=== PATIENT | female | born 1960 | race African-American/Black ===

== ENCOUNTER 2017-01-03 11:02 | Emergency (ER) | payer BC, OTHER ==
[2017-01-03 11:08] VITALS: BMI 32.9
--- NOTE | 2017-01-03 12:24 | PDOC ---
Attending Attestation - Resident Resident Name: Kavitha Sheehan - HPI HPI: 01/03/17 15:17 Pt presents to the ED complaining of non productive cough, nausea and vomiting and generalized malaise. Complains of multiple episodes of vomiting, culminating in bilious vomiting this AM. two of her family members were recently sick with the flu. Also complaining of mild, generalized abdominal pain, worse with vomiting. - Physicial Exam PE: 01/03/17 15:41 Agree with resident exam. Lungs are clear, abdomen is non tender on my exam. 01/03/17 16:48 - Medical Decision Making 01/03/17 16:49 Pt presents to the ED complaining of generalized malaise, productive cough and vomiting. Labs are within normal limits except for mildly elevated WBC count. CXr checked to rule out PNA and is negative. Will give IV hydration and nausea control and likely discharge home if tolerates PO.
[2017-01-03] MEDS ORDERED: ACETAMINOPHEN 1000 MG/100 ML VIAL (NON FORMULARY) IVPB ONE (12:31)
[2017-01-03] MEDS ORDERED: ONDANSETRON 4 MG/2 ML VIAL IVPUSH ONE ×2 (12:31→16:59)
[2017-01-03] MEDS ORDERED: SODIUM CHLORIDE 1,000 ML IV STA ×2 (12:31→16:58)
--- NOTE | 2017-01-03 12:40 | PDOC ---
History of Present Illness - General Chief Complaint: Weakness Stated Complaint: FATIGUE, LOW BLOOD SUGAR Time Seen by Provider: 01/03/17 12:09 - History of Present Illness Initial Comments: 01/03/17 13:13 56yo woman with PMH of DM, HTN, HLD, and GERD who presents with continuous NBNB emesis since 3:30am, 3x episodes of non-bloody watery diarrhea, and generalized myalgia. Subjective fever and chills this morning. For the past few days she reports increased productive cough, but no sob. She also reports R ear pain starting a few days ago. Reports recent contact with several family members who have the "flu". She had a flu shot in August. No recent travel. PSx: R breast lumpectomy in R knee ACL repair x2 R rotator cuff repair x2 endometriosis s/p multiple laparoscopic hysterectomy 2010 hemorrhoidectomy Allergies: Morphine --> nausea Social: current everyday smoker, 1/2 ppd Past History - Past Medical History Allergies/Adverse Reactions: Allergies Allergy/AdvReac Type Severity Reaction Status Date / Time morphine Allergy Vomiting Verified 01/03/17 11:09 seasonal Allergy Uncoded 01/03/17 11:09 Home Medications: Ambulatory Orders Percocet 10-325 mg Tablet 2 tab PO BID 06/07/11 Albuterol Sulfate Inhaler - [Ventolin HFA Inhaler -] 1 - 2 inh PO Q4H #1 inhaler 01/03/17 Ondansetron [Zofran Odt -] 4 mg SL TID #21 od.tablet 01/03/17 Prednisone [Deltasone -] 40 mg PO DAILY #4 tablet 01/03/17 Anemia: No Asthma: No Cancer: No Cardiac Disorders: No CVA: No COPD: No CHF: No Dementia: No Diabetes: Yes GI Disorders: Yes (gerd) Disorders: No HTN: Yes Hypercholesterolemia: Yes Liver Disease: No Seizures: No Thyroid Disease: No - Surgical History Abdominal Surgery: Yes (umbilical hernia repair) Appendectomy: No Cardiac Surgery: No Cholecystectomy: No Lung Surgery: No Neurologic Surgery: No Orthopedic Surgery: Yes (right shoulder arthroscopy 2010) - Suicide/Smoking/Psychosocial Hx Smoking History: Current every day smoker Have you smoked in the past 12 months: Yes Number of Cigarettes Smoked Daily: 13 If you are a former smoker, when did you quit?: 03/04/11 Information on smoking cessation initiated: Yes 'Breaking Loose' booklet given: 01/03/17 Hx Alcohol Use: No Drug/Substance Use Hx: No Substance Use Type: None Hx Substance Use Treatment: No Review of Systems - Review of Systems Able to Perform ROS?: Yes Constitutional: Yes: Symptoms Reported HEENTM: Yes: Ear Pain (R) Respiratory: Yes: Productive cough Cardiac (ROS): No: Symptoms Reported, See HPI, Chest Pain, Edema, Irregular Heart Rate, Lightheadedness, Palpitations, Syncope, Chest Tightness, Other ABD/GI: Yes: Diarrhea, Nausea, Vomiting : No: Symptoms Reported, See HPI, Burning, Dysuria, Discharge, Frequency, Flank Pain, Hematuria, Incontinence, Pain, Urgency, Testicular Mass, Testicular Swelling, Lesions, Testicular Pain, Other Musculoskeletal: No: Symptoms Reported, See HPI, Back Pain, Gout, Joint Pain, Joint Swelling, Muscle Pain, Muscle Weakness, Neck Pain, Joint Stiffness, Other Integumentary: No: Symptoms Reported, See HPI, Bruising, Change in Color, Change in Hair/Nails, Dryness, Erythema, Flushing, Lesions, Lumps, Pallor, Pruritus, Rash, Sweating, Other Neurological: Yes: Headache Psychiatric: No: Anxiety, Depression, Frequent Crying, Stressors, Sleep Pattern Change, Emotional Problems, Mood Swings, Change in Appetite, Other Endocrine: No: Symptoms Reported, See HPI, Excessive Sweating, Flushing, Intolerance to Cold, Intolerance to Heat, Increased Hunger, Increased Thirst, Increased Urine, Unexplained Weight Gain, Unexplained Weight Loss, Change in Weight, Other Hematologic/Lymphatic: No: Symptoms Reported, See HPI, Anemia, Blood Clots, Easy Bleeding, Easy Bruising, Bleeding Diathesis, Lymph Node Abnormalities, Swollen Glands, Other *Physical Exam - Vital Signs Last Vital Signs Temp Pulse Resp BP Pulse Ox 99.2 F 116 H 19 96/80 97 01/03/17 11:05 01/03/17 11:05 01/03/17 11:05 01/03/17 11:05 01/03/17 11:05 - Physical Exam General Appearance: Yes: Nourished, Appropriately Dressed HEENT: positive: Normal ENT Inspection Neck: positive: Lymphadenopathy (R) Respiratory/Chest: positive: Lungs Clear, Normal Breath Sounds Cardiovascular: positive: Regular Rhythm, S1, S2, Tachycardia Gastrointestinal/Abdominal: positive: Soft, Protuberent, Other (mild diffuse tenderness) Musculoskeletal: positive: Normal Inspection Integumentary: positive: Normal Color 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 The heart, lincoln and mediastinum demonstrate no obvious abnormality. IMPRESSION: No definite interval change is seen in comparison to a prior radiographic study of 03/25/2016. Medical Decision Making - Medical Decision Making 01/03/17 13:56 56yo woman with nausea/vomiting, watery diarrhea, and generalized myalgia. Differential includes, but not limited to viral syndrome, gastroenteritis, colitis. Will treat symptomatically at this time, and reassess. -CBC, CMP -IVFs -Zofran 4mg -Tylenol 1g IV -Toradol 30mg IVP 01/03/17 14:15 Patient having productive cough. Will order CXR as she is an active smoker. 01/03/17 15:59 Labs reveal mild leukocytosis (WBC 13.5k). Electrolytes wnl. Patient's symptoms have improved with medications provided. Will do PO challenge and reassess. 01/03/17 16:52 CXR is unconcerning for PNA. She has tolerated PO intake. Patient continuing to cough with post-tussive emesis and c/o CROWLEY. Will order the following and reassess: -1L NS -Zofran 4mg IVP -Ibuprofen 800mg IVP 01/03/17 18:44 Vital Signs Temperature 98.1 F 01/03/17 18:25 Pulse Rate 90 01/03/17 18:25 Respiratory Rate 20 01/03/17 18:25 Blood Pressure 150/80 01/03/17 18:25 O2 Sat by Pulse Oximetry (%) 96 01/03/17 18:25 Patient is feeling better. No further c/o CROWLEY, cough is controlled and no further episodes of emesis. VSS are stable, patient is afebrile, and is stable to be discharged home. *DC/Admit/Observation/Transfer Diagnosis at time of Disposition: Viral syndrome - Discharge Dispostion Disposition: HOME Condition at time of disposition: Stable Admit: No - Prescriptions Prescriptions: Albuterol Sulfate Inhaler - [Ventolin HFA Inhaler -] 1 - 2 inh PO Q4H #1 inhaler Ondansetron [Zofran Odt -] 4 mg SL TID #21 od.tablet Prednisone [Deltasone -] 40 mg PO DAILY #4 tablet - Referrals Referrals: Sophia Butcher [Primary Care Provider] - - Patient Instructions Additional Instructions: Please see your primary care physician within 1-2 weeks. You likely have a viral infection, and may continue to have symptoms for the next few days. Keep your head elevated while sleeping at night to prevent coughing. MEDICATIONS: Please resume your regularly daily medications. You are also being prescribed the following medications: -Take Zofran for nausea. Dissolve one tablet under your tongue three times per day as needed for nausea. -Use Albuterol inhaler for cough or shortness of breath. Take 1-2 puffs every 4 hours as needed. -Take Prednisone 40mg once daily starting tomorrow for the next four days (01/04 -01/07). Please return to the Emergency Department if you have new, worsening or concerning symptoms. - Post Discharge Activity
[2017-01-03] MEDS ORDERED: ONDANSETRON *ODT* 4 MG TABLET ONE (13:15)
[2017-01-03 13:48] LABS: BASOPHIL 0.4 % (0-2.0); MCH 25.5 pg (25.7-33.7); MEAN CELL VOLUME 79.7 fl (80-96); MEAN PLT VOLUME 7.5 fl (7.5-11.1); NEUTROPHILS 84.2 % (42.8-82.8); PLATELET COUNT 299 K/MM3 (134-434); RDW 14.4 % (11.6-15.6); WHITE BLOOD COUNT 13.5 K/mm3 (4.0-10.0)
[2017-01-03] MEDS: KETOROLAC TROMETHAMINE 30 MG/1 ML VIAL IVPUSH ONE ×2 (13:52→18:01)
[2017-01-03] MEDS ORDERED: ACETAMINOPHEN INJECTION 100 ML IVPB ONE (13:53)
[2017-01-03 13:57] LABS: ALBUMIN 3.9 g/dl (3.4-5.0); ANION GAP 9 (8-16); BILIRUBIN,TOTAL 0.4 mg/dL (0.2-1.0); CO2 29 mmol/L (21-32); CREATININE 0.8 mg/dL (0.55-1.02); GLUCOSE,RANDOM 177 mg/dL (74-106); SGOT/AST 33 U/L (15-37); SGPT/ALT 50 U/L (12-78); TOT PROT 7.4 g/dl (6.4-8.2)
[2017-01-03 13:58] LABS: ALK PHOS 89 U/L (45-117)
[2017-01-03] MEDS ORDERED: IBUPROFEN 400 MG TABLET (FP) PO ONE ×2 (16:39→17:03)
[2017-01-03] MEDS ORDERED: guaiFENesin/D-M SUGAR-FREE/ACLHOL-FREE 118 ML BOTTLE PO PRN (17:00)
[2017-01-03] MEDS ORDERED: ONDANSETRON 4 MG/2 ML VIAL ONE (17:03)
[2017-01-03] MEDS ORDERED: IBUPROFEN 800 MG/8 ML IJ IVPB ONE ×2 (17:16→17:32)
[2017-01-03] MEDS ORDERED: guaiFENesin/D-METHORPHAN HB 10 ML UNIT-DOSE CUPS ONE (18:03)
[2017-01-03 18:26] VITALS: BP 150/80; PULSE 90; TEMP 98.1
[2017-01-03] MEDS ORDERED: predniSONE 20 MG TABLET (UD) PO ONE (18:43)
[2017-01-03] MEDS ORDERED: predniSONE 20 MG TABLET (UD) ONE (18:56)
== END 2017-01-03 19:05 | disposition home or self-care (01) ==
LOC: JER 11:02
PROC: 3E0337Z Introduction of Electrolytic and Water Balance Substance into Peripheral Vein, Percutaneous Approach (ICD-10-PCS; principal; 2017-01-03)
PROC: 3E033NZ Introduction of Analgesics, Hypnotics, Sedatives into Peripheral Vein, Percutaneous Approach (ICD-10-PCS; 2017-01-03)
PROC: 3E033GC Introduction of Other Therapeutic Substance into Peripheral Vein, Percutaneous Approach (ICD-10-PCS; 2017-01-03)
PROC: 3E0333Z Introduction of Anti-inflammatory into Peripheral Vein, Percutaneous Approach (ICD-10-PCS; 2017-01-03)
DX: B34.9 Viral infection, unspecified (principal); E11.9 Type 2 diabetes mellitus without complications; I10 Essential (primary) hypertension; E78.00 Pure hypercholesterolemia, unspecified; K21.9 Gastro-esophageal reflux disease without esophagitis; F17.210 Nicotine dependence, cigarettes, uncomplicated
CPT/HCPCS: 36415; 71020-TC; 80053; 85025; 99283-25

== ENCOUNTER 2018-04-20 14:42 | Emergency (ER) | payer BC, OTHER ==
--- NOTE | 2018-04-20 15:21 | PDOC ---
Rapid Medical Evaluation Time Seen by Provider: 04/20/18 15:17 Medical Evaluation: Allergies Allergy/AdvReac Type Severity Reaction Status Date / Time morphine Allergy Vomiting Verified 01/03/17 11:09 seasonal Allergy Uncoded 01/03/17 11:09 04/20/18 15:17 I performed a brief in-person evaluation of this patient. Chief complaint: Abdominal pain, nausea?vomiting, poor PO intake x 4 days, hx HTN, NIDDM Pertinent physical exam findings: +LUQ tenderness I have ordered the following: CBC, CMP, lipase, trop, ketones, EKG, UA Patient will proceed to the ED for further evaluation. Discharge Disposition - Diagnosis Abdominal pain - Referrals - Patient Instructions - Post Discharge Activity
[2018-04-20 15:23] VITALS: BP 148/82; PULSE 104; TEMP 98.6; BMI 34.0
[2018-04-20 15:51] LABS: BASO % 1.3 % (0-2.0); EOS % 0.4 % (0-4.5); HEMATOCRIT 43.9 % (32.4-45.2); HEMOGLOBIN 14.5 GM/dL (10.7-15.3); LYMPH % 34.8 % (8-40); MCH 26.5 pg (25.7-33.7); MEAN CELL VOLUME 80.1 fl (80-96); MEAN PLT VOLUME 7.6 fl (7.5-11.1); MONO % 5.7 % (3.8-10.2); NEUT % 57.8 % (42.8-82.8); PLATELET COUNT 343 K/MM3 (134-434); RBC 5.48 M/mm3 (3.60-5.2); RDW 14.2 % (11.6-15.6); WHITE BLOOD COUNT 7.8 K/mm3 (4.0-10.0)
[2018-04-20 16:22] LABS: ALBUMIN 4.2 g/dl (3.4-5.0); ALK PHOS 85 U/L (45-117); ANION GAP 6 MMOL/L (8-16); BILIRUBIN,TOTAL 0.2 mg/dL (0.2-1); BLOOD UREA NITROGEN 5 mg/dL (7-18); CALCIUM 10.1 mg/dL (8.5-10.1); CHLORIDE 103 mmol/L (98-107); CO2 26 mmol/L (21-32); CREATININE 0.6 mg/dL (0.55-1.3); GLUCOSE,RANDOM 197 mg/dL (74-106); LIPASE 140 U/L (73-393); POTASSIUM 3.9 mmol/L (3.5-5.1); SGOT/AST 14 U/L (15-37); SGPT/ALT 26 U/L (13-61); SODIUM 136 mmol/L (136-145); TOT PROT 7.8 g/dl (6.4-8.2)
[2018-04-20 16:38] LABS: ACETONE SERUM TRACE (NEGATIVE)
[2018-04-20 16:48] LABS: URINE APPEARANCE TURBID; URINE BILIRUBIN NEGATIVE (<2.0 mg/dL); URINE COLOR AMBER; URINE GLUCOSE (UA) 2+ (NEGATIVE); URINE KETONE TRACE (NEGATIVE); URINE LEUK ESTERASE NEGATIVE (NEGATIVE); URINE NITRITE NEGATIVE (NEGATIVE); URINE PROTEIN 2+ (NEGATIVE); URINE UROBILINOGEN NEGATIVE mg/dL (0.2-1.0)
[2018-04-20 17:30] LABS: EPI CELLS MODERATE /HPF (FEW); URINE BACTERIA MODERATE /hpf (NONE SEEN); URINE MUCUS MANY; YEAST RARE
--- NOTE | 2018-04-21 11:10 | EKG ---
Test Reason : Blood Pressure : / mmHG Vent. Rate : 096 BPM Atrial Rate : 096 BPM P-R Int : 134 ms QRS Dur : 088 ms QT Int : 352 ms P-R-T Axes : 069 049 068 degrees QTc Int : 444 ms NORMAL SINUS RHYTHM POSSIBLE LEFT ATRIAL ENLARGEMENT WHEN COMPARED WITH ECG OF 20-MAR-2018 08:38, NO SIGNIFICANT CHANGE WAS FOUND Confirmed by YULIANA CARROLL MD ([id number]) on 04/21/2018 11:09:49 AM Referred By: Confirmed By:YULIANA CARROLL MD
== END 2018-04-20 19:48 | disposition left against medical advice (07) ==
LOC: JER 14:42
DX: R10.9 Unspecified abdominal pain (principal); I10 Essential (primary) hypertension; E11.9 Type 2 diabetes mellitus without complications
CPT/HCPCS: 36415; 80053; 81003; 81015; 82009; 83690; 84484; 85025; 93005; 93010; 99283-25

== ENCOUNTER 2018-04-21 13:12 | Emergency (ER) | payer BC, OTHER ==
--- NOTE | 2018-04-21 13:41 | PDOC ---
Rapid Medical Evaluation Chief Complaint: Pain Time Seen by Provider: 04/21/18 13:40 Medical Evaluation: Allergies Allergy/AdvReac Type Severity Reaction Status Date / Time morphine Allergy Vomiting Verified 04/21/18 13:39 seasonal Allergy Uncoded 04/21/18 13:39 04/21/18 13:40 I performed a brief in-person evaluation of this patient. Chief complaint: Abd pain, n/v/d, poor PO intake, dysuria. Triaged last night but LBME. Pertinent physical exam findings: LUQ tenderness. HR 110. I have ordered the following: Patient to proceed to the ED for further evaluation.
[2018-04-21 13:43] VITALS: BP 114/85; PULSE 109; TEMP 98.5; BMI 34.0
[2018-04-21] MEDS ORDERED: SODIUM CHLORIDE 1,000 ML IV STA ×2 (16:16→17:01)
[2018-04-21] MEDS ORDERED: ONDANSETRON 4 MG/2 ML VIAL IVPUSH ONE (16:16)
[2018-04-21] MEDS ORDERED: PANTOPRAZOLE SODIUM 40 MG in SODIUM CHLORIDE 100 ML IVPB ONE (16:16)
[2018-04-21] MEDS ORDERED: ONDANSETRON 4 MG/2 ML VIAL ONE (16:22)
[2018-04-21] MEDS ORDERED: PANTOPRAZOLE SODIUM 40 MG/100 ML BAG IVPB ONE (16:22)
[2018-04-21] MEDS ORDERED: KETOROLAC TROMETHAMINE 30 MG/1 ML VIAL IVPUSH ONE (16:22)
[2018-04-21] MEDS ORDERED: KETOROLAC TROMETHAMINE 30 MG/1 ML VIAL ONE (16:22)
--- NOTE | 2018-04-21 16:33 | PDOC ---
History of Present Illness - General Chief Complaint: Pain Stated Complaint: ABD RESULTS Time Seen by Provider: 04/21/18 13:40 History Source: Patient Exam Limitations: No Limitations - History of Present Illness Travel History: No Initial Comments: 04/21/18 17:01 57 y/o female presents to the ED with c/o n/v/d/ along w/ epigastric burning and decreased urine output since yesterday. Pt is a diabetic w/ hx of GERD and states did not take her meds today secondary nausea. Pt denies fever, headache, dizziness, recent change in diet, cp, sob, or recent constipation. Pt states was here yesterday but left before being seen and returned today because was unable to see her dr Keya Butcher today. Pt denies recent travel or recent illness. 04/21/18 17:12 Timing/Duration: reports: changing over time Quality: reports: mild, cramping (epigastric) Abdominal Pain Onset Location: reports: epigastric Pain Radiation: reports: no radiation Activities at Onset: reports: none Aggravating Factors: improves with: None Alleviating Factors: improves with: None Past History - Travel Traveled outside of the country in the last 30 days: No Close contact w/someone who was outside of country & ill: No - Past Medical History Allergies/Adverse Reactions: Allergies Allergy/AdvReac Type Severity Reaction Status Date / Time morphine Allergy Vomiting Verified 04/21/18 13:39 seasonal Allergy Uncoded 04/21/18 13:39 Home Medications: Ambulatory Orders Nitrofurantoin Monohyd/M-Cryst [Macrobid -] 100 mg PO BID #14 capsule 04/21/18 Ondansetron HCl [Zofran] 4 mg PO TID PRN #12 tablet 04/21/18 Anemia: No Asthma: No Cancer: No Cardiac Disorders: No CVA: No COPD: No CHF: No Dementia: No Diabetes: Yes (NIDM) GI Disorders: Yes (gerd) Disorders: No HTN: Yes Hypercholesterolemia: Yes Liver Disease: No Seizures: No Thyroid Disease: No - Surgical History Abdominal Surgery: Yes (umbilical hernia repair) Appendectomy: No Cardiac Surgery: No Cholecystectomy: No Lung Surgery: No Neurologic Surgery: No Orthopedic Surgery: Yes (right shoulder arthroscopy 2010) - Immunization History Immunization Up to Date: Yes - Suicide/Smoking/Psychosocial Hx Smoking History: Current every day smoker Have you smoked in the past 12 months: Yes Number of Cigarettes Smoked Daily: 10 If you are a former smoker, when did you quit?: 03/04/11 Information on smoking cessation initiated: No 'Breaking Loose' booklet given: 01/03/17 Hx Alcohol Use: No Drug/Substance Use Hx: No Substance Use Type: None Hx Substance Use Treatment: No Patient Lives Alone: No Lives with/in: spouse/SO Abd/GI Specific PMHX - Complaint Specific PMHX GERD: Yes Review of Systems - Review of Systems Able to Perform ROS?: Yes Constitutional: No: Symptoms Reported HEENTM: No: Symptoms Reported Respiratory: No: Symptoms reported Cardiac (ROS): No: Symptoms Reported ABD/GI: Yes: Diarrhea, Nausea, Vomiting, Indigestion : Yes: Dysuria Musculoskeletal: No: Symptoms Reported Integumentary: No: Symptoms Reported Neurological: No: Symptoms reported Endocrine: No: Symptoms Reported *Physical Exam - Vital Signs Last Vital Signs Temp Pulse Resp BP Pulse Ox 98.5 F 109 H 16 114/85 98 04/21/18 13:40 04/21/18 13:40 04/21/18 13:40 04/21/18 13:40 04/21/18 13:40 - Physical Exam General Appearance: Yes: Nourished, Appropriately Dressed. No: Apparent Distress HEENT: positive: Pharynx Normal (moist) Neck: positive: Supple Respiratory/Chest: positive: Lungs Clear, Normal Breath Sounds. negative: Respiratory Distress, Accessory Muscle Use Cardiovascular: positive: Regular Rhythm, Tachycardia. negative: Murmur Gastrointestinal/Abdominal: positive: Soft, Tenderness (mild epigastric) Musculoskeletal: negative: CVA Tenderness Extremity: positive: Normal Capillary Refill Integumentary: positive: Normal Color, Warm, Moist Neurologic: positive: Motor Strength 5/5 (ambulatory) Moderate Sedation - Procedure Monitoring Vital Signs: Procedure Monitoring Vital Signs Temperature 98.5 F 04/21/18 13:40 Pulse Rate 109 H 04/21/18 13:40 Respiratory Rate 16 04/21/18 13:40 Blood Pressure 114/85 04/21/18 13:40 O2 Sat by Pulse Oximetry (%) 98 04/21/18 13:40 ED Treatment Course - LABORATORY CBC & Chemistry Diagram: 04/21/18 16:30 04/21/18 16:30 - Medications Given in the ED: ED Medications Discontinued Medications Generic Name Dose Route Start Last Admin Trade Name Dennis PRN Reason Stop Dose Admin Ketorolac Tromethamine 30 mg 04/21/18 16:22 04/21/18 16:29 Toradol Injection - IVPUSH 04/21/18 16:23 30 mg ONCE ONE Administration Ondansetron HCl 4 mg 04/21/18 16:16 04/21/18 16:29 Zofran Injection IVPUSH 04/21/18 16:17 4 mg ONCE ONE Administration Medical Decision Making - Medical Decision Making 04/21/18 16:13 CC: n/v/d/dysuria and epigastric burning since yesterday Exam: mild epigastric tenderness and tachycardic Plan: lans, acetone, ivf, zofran, protonix, zofran, ua, ucx, vbg 04/21/18 17:14 04/21/18 17:57 Laboratory Tests 04/21/18 04/21/18 04/21/18 16:30 16:30 16:30 WBC 8.7 Hgb 13.3 Absolute Neuts (auto) 5.2 Neutrophils % 59.8 VBG pH 7.38 POC VBG pCO2 43.0 POC VBG pO2 46.0 H VBG HCO3 24.6 VBG O2 Sat (German) 80.8 H VBG Base Excess -0.2 Sodium 134 L Potassium 4.1 Chloride 100 Carbon Dioxide 25 Anion Gap 8 BUN 7 Creatinine 0.7 Random Glucose 259 H Calcium 9.3 Total Bilirubin 0.2 AST 17 ALT 23 Alkaline Phosphatase 70 Total Protein 7.0 Albumin 3.7 Urine Protein Urine Glucose (UA) Urine Blood Ur Leukocyte Esterase Urine WBC (Auto) Urine RBC (Auto) Acetone, Qual 04/21/18 04/21/18 17:28 17:36 WBC Hgb Absolute Neuts (auto) Neutrophils % VBG pH POC VBG pCO2 POC VBG pO2 VBG HCO3 VBG O2 Sat (German) VBG Base Excess Sodium Potassium Chloride Carbon Dioxide Anion Gap BUN Creatinine Random Glucose Calcium Total Bilirubin AST ALT Alkaline Phosphatase Total Protein Albumin Urine Protein 1+ H Urine Glucose (UA) 3+ H Urine Blood 1+ H Ur Leukocyte Esterase 2+ H Urine WBC (Auto) 7 Urine RBC (Auto) 14 Acetone, Qual Negative L ucx sent. No previous cx on file. will treat with macrobid and zofran as needed. pt states feeling better 04/21/18 18:07 *DC/Admit/Observation/Transfer Diagnosis at time of Disposition: Nausea & vomiting - Discharge Dispostion Disposition: HOME Condition at time of disposition: Improved - Prescriptions Prescriptions: Nitrofurantoin Monohyd/M-Cryst [Macrobid -] 100 mg PO BID #14 capsule Ondansetron HCl [Zofran] 4 mg PO TID PRN #12 tablet PRN Reason: Nausea And/Or Vomiting - Referrals - Patient Instructions Printed Discharge Instructions: DI for Urinary Tract Infection (UTI) Additional Instructions: Please take medications as prescribed. Return to the ED if symptoms worsen - Post Discharge Activity
[2018-04-21 16:41] LABS: VENOUS PH 7.38 (7.31-7.41)
[2018-04-21 16:42] LABS: EOS % 0.4 % (0-4.5); HEMATOCRIT 40.7 % (32.4-45.2); HEMOGLOBIN 13.3 GM/dL (10.7-15.3); LYMPH % 33.5 % (8-40); MCH 26.4 pg (25.7-33.7); MCHC 32.7 g/dl (32.0-36.0); MEAN CELL VOLUME 80.5 fl (80-96); MONO % 5.3 % (3.8-10.2); NEUT % 59.8 % (42.8-82.8); PLATELET COUNT 336 K/MM3 (134-434); RBC 5.05 M/mm3 (3.60-5.2); RDW 14.5 % (11.6-15.6); WHITE BLOOD COUNT 8.7 K/mm3 (4.0-10.0)
[2018-04-21 17:25] LABS: ALBUMIN 3.7 g/dl (3.4-5.0); ALK PHOS 70 U/L (45-117); ANION GAP 8 MMOL/L (8-16); BILIRUBIN,TOTAL 0.2 mg/dL (0.2-1); BLOOD UREA NITROGEN 7 mg/dL (7-18); CALCIUM 9.3 mg/dL (8.5-10.1); CHLORIDE 100 mmol/L (98-107); CO2 25 mmol/L (21-32); CREATININE 0.7 mg/dL (0.55-1.3); GLUCOSE,RANDOM 259 mg/dL (74-106); POTASSIUM 4.1 mmol/L (3.5-5.1); SGOT/AST 17 U/L (15-37); SGPT/ALT 23 U/L (13-61); SODIUM 134 mmol/L (136-145)
[2018-04-21 17:54] LABS: URINE APPEARANCE CLOUDY; URINE BILIRUBIN NEGATIVE (<2.0 mg/dL); URINE COLOR YELLOW; URINE GLUCOSE (UA) 3+ (NEGATIVE); URINE KETONE NEGATIVE (NEGATIVE); URINE LEUK ESTERASE 2+ (NEGATIVE); URINE NITRITE NEGATIVE (NEGATIVE); URINE PROTEIN 1+ (NEGATIVE); URINE UROBILINOGEN NEGATIVE mg/dL (0.2-1.0)
[2018-04-21 17:57] LABS: EPI CELLS MODERATE /HPF (FEW); URINE MUCUS RARE
[2018-04-21] MEDS ORDERED: NITROFURANTOIN MACROCRYSTAL 50 MG CAPSULE (FP) ONE (18:16)
[2018-04-21] MEDS ORDERED: NITROFURANTOIN MACROCRYSTAL 50 MG CAPSULE (FP) PO SCH (18:30)
== END 2018-04-21 18:40 | disposition home or self-care (01) ==
LOC: JER 13:12
PROC: 3E0333Z Introduction of Anti-inflammatory into Peripheral Vein, Percutaneous Approach (ICD-10-PCS; principal; 2018-04-21)
PROC: 3E033GC Introduction of Other Therapeutic Substance into Peripheral Vein, Percutaneous Approach (ICD-10-PCS; 2018-04-21)
PROC: 3E0337Z Introduction of Electrolytic and Water Balance Substance into Peripheral Vein, Percutaneous Approach (ICD-10-PCS; 2018-04-21)
DX: R11.2 Nausea with vomiting, unspecified (principal)
CPT/HCPCS: 80053; 81003; 81015; 82009; 82803; 85025; 87086; 99282-25; J7030

== ENCOUNTER 2021-05-19 05:00 | Emergency (ER) | payer OTHER, BC ==
[2021-05-19 05:21] VITALS: BP 151/81; PULSE 107; TEMP 98.2; BMI 32.4
[2021-05-19] MEDS ORDERED: ACETAMINOPHEN 500 MG TABLET (FP) PO ONE (05:50)
[2021-05-19] MEDS ORDERED: KETOROLAC TROMETHAMINE 15 MG/ML VIAL IM ONE (05:51)
[2021-05-19] MEDS ORDERED: oxyCODONE HCL 5 MG TABLET PO ONE (05:51)
[2021-05-19] MEDS ORDERED: METHOCARBAMOL 500 MG TABLET PO ONE (05:51)
[2021-05-19] MEDS ORDERED: LIDOCAINE 5% TOPICAL PATCH TP ONE (05:52)
[2021-05-19] MEDS ORDERED: ACETAMINOPHEN 325 MG TABLET (FP) ONE (05:56)
[2021-05-19] MEDS ORDERED: METHOCARBAMOL 500 MG TABLET ONE (05:56)
[2021-05-19] MEDS ORDERED: oxyCODONE HCL 5 MG TABLET ONE (05:56)
[2021-05-19] MEDS ORDERED: LIDOCAINE 5% TOPICAL PATCH ONE (05:57)
[2021-05-19] MEDS ORDERED: KETOROLAC TROMETHAMINE 15 MG/ML VIAL ONE (05:57)
[2021-05-19] MEDS ORDERED: LIDOCAINE PATCH REMOVAL MC SCH (22:00)
== END 2021-05-19 06:39 | disposition home or self-care (01) ==
LOC: JER 05:00
PROC: 3E023GC Introduction of Other Therapeutic Substance into Muscle, Percutaneous Approach (ICD-10-PCS; principal; 2021-05-19)
DX: M54.42 Lumbago with sciatica, left side (principal)
CPT/HCPCS: 99284-25

== ENCOUNTER 2022-03-23 12:42 | Inpatient (IN) | payer BC, OTHER ==
[2022-03-23] MEDS ORDERED: LACTATED RINGERS SOLUTION 1000 ML INFUS.BAG IV ONE ×2 (13:07→15:52)
[2022-03-23] MEDS ORDERED: ONDANSETRON 4 MG/2 ML VIAL IVPUSH ONE ×2 (13:07→15:53)
[2022-03-23] MEDS ORDERED: FAMOTIDINE 20 MG/50 ML IVPB 20 MG/50 ML MG IVPB ONE ×2 (13:07→13:30)
[2022-03-23] MEDS ORDERED: ACETAMINOPHEN 1000 MG/100 ML BAG IVPB ONE (13:07)
[2022-03-23] MEDS ORDERED: FENTANYL CITRATE/PF 50 MCG/ML VIAL ONE ×3 (13:16→15:20)
[2022-03-23] MEDS ORDERED: ONDANSETRON 4 MG/2 ML VIAL ONE ×2 (13:16→15:55)
[2022-03-23] MEDS ORDERED: PANTOPRAZOLE SODIUM 40 MG VIAL IVPUSH ONE (13:22)
[2022-03-23] MEDS ORDERED: PANTOPRAZOLE SODIUM 40 MG/100 ML BAG IVPB ONE (13:23)
[2022-03-23] MEDS ORDERED: ACETAMINOPHEN INJECTION 100 ML IVPB ONE (13:23)
[2022-03-23] MEDS ORDERED: PANTOPRAZOLE SODIUM 40 MG VIAL ONE (13:30)
[2022-03-23 14:13] LABS: BASO % 0.6 % (0-2.0); EOS % 0.1 % (0-4.5); HEMATOCRIT 43.7 % (32.4-45.2); HEMOGLOBIN 13.9 GM/dL (10.7-15.3); LYMPH % 21.9 % (8-40); MCH 27.7 pg (25.7-33.7); MCHC 31.8 g/dl (32.0-36.0); MEAN PLT VOLUME 7.8 fl (7.5-11.1); MONO % 3.7 % (3.8-10.2); NEUT % 73.7 % (42.8-82.8); PLATELET COUNT 411 10^3/uL (134-434); RBC 5.03 M/mm3 (3.60-5.2); RDW 16.1 % (11.6-15.6); WHITE BLOOD COUNT 12.8 K/mm3 (4.0-10.0)
[2022-03-23 14:19] LABS: LACTIC ACID 4.4 mmol/L (0.4-2.0)
[2022-03-23 14:20] LABS: INR 0.92 (0.83-1.09); PROTHROMBIN TIME (PATIENT) 10.7 SEC (9.7-13.0)
[2022-03-23 14:23] LABS: ACTIVATED PTT 30.2 SECONDS (25.2-36.5)
[2022-03-23 15:12] LABS: CALCIUM 10.6 mg/dL (8.5-10.1)
[2022-03-23 15:13] LABS: ALBUMIN 4.3 g/dl (3.4-5.0); MAGNESIUM 1.5 mg/dL (1.8-2.4)
[2022-03-23 15:16] LABS: BILIRUBIN,TOTAL 0.3 mg/dL (0.2-1); CREATININE 0.7 mg/dL (0.55-1.3); TOT PROT 7.6 g/dl (6.4-8.2)
[2022-03-23] MEDS ORDERED: MAGNESIUM SULF 50% (8.12 MEQ/2 ML-1 GM VIAL) IVPB ONE (15:52)
[2022-03-23] MEDS ORDERED: MAGNESIUM SULFATE IN WATER 2 GM/50 ML IVPB IVPB ONE (15:54)
[2022-03-23] MEDS ORDERED: METOCLOPRAMIDE HCL INJECTION 10 MG/2 ML VIAL IVPUSH ONE (17:30)
[2022-03-23] MEDS ORDERED: HYDROmorphone HCL CARPU-JECT 2 MG/1 ML DISP.SYRIN IVPUSH ONE (17:30)
[2022-03-23] MEDS ORDERED: METOCLOPRAMIDE HCL INJECTION 10 MG/2 ML VIAL ONE (17:35)
[2022-03-23] MEDS ORDERED: HYDROmorphone HCl 2 MG/ML VIAL ONE (17:35)
[2022-03-23] MEDS ORDERED: ACETAMINOPHEN 325 MG TABLET (FP) PO PRN (18:25)
[2022-03-23] MEDS ORDERED: oxyCODONE HCL 5 MG TABLET PO PRN (18:25)
[2022-03-23] MEDS ORDERED: MAG HYDROX/AL HYDROX/SIMETH 30 ML UNIT-DOSE CUP PO PRN (18:34)
[2022-03-23 21:14] LABS: LACTIC ACID 2.4 mmol/L (0.4-2.0)
[2022-03-23 22:31] VITALS: BMI 30.6
[2022-03-23] MEDS: LACTATED RINGERS SOLUTION 1,000 ML/1,000 ML INFUS.BAG IV SCH (22:48)
[2022-03-23] MEDS: PANTOPRAZOLE SODIUM 40 MG VIAL IVPUSH SCH (22:50)
[2022-03-23] MEDS: GABAPENTIN 300 MG CAPSULE PO SCH (22:57)
[2022-03-24] MEDS: ENOXAPARIN NA (PORCINE) 40 MG/0.4 ML DISP.SYRIN SQ SCH (09:45)
[2022-03-24] MEDS: LACTATED RINGERS SOLUTION 1,000 ML/1,000 ML INFUS.BAG IV SCH ×2 (09:45→12:37)
[2022-03-24] MEDS: GABAPENTIN 300 MG CAPSULE PO SCH ×2 (09:45→22:05)
[2022-03-24] MEDS: PANTOPRAZOLE SODIUM 40 MG VIAL IVPUSH SCH ×2 (09:45→22:05)
[2022-03-24 09:46] LABS: BASO % 0.6 % (0-2.0); EOS % 0.1 % (0-4.5); HEMATOCRIT 36.7 % (32.4-45.2); HEMOGLOBIN 12.1 GM/dL (10.7-15.3); LYMPH % 26.9 % (8-40); MCH 28.4 pg (25.7-33.7); MEAN CELL VOLUME 86.1 fl (80-96); MEAN PLT VOLUME 7.6 fl (7.5-11.1); MONO % 5.4 % (3.8-10.2); PLATELET COUNT 312 10^3/uL (134-434); RBC 4.26 M/mm3 (3.60-5.2); RDW 16.2 % (11.6-15.6); WHITE BLOOD COUNT 11.7 K/mm3 (4.0-10.0)
[2022-03-24 11:05] LABS: BLOOD UREA NITROGEN 5.3 mg/dL (7-18); CALCIUM 9.9 mg/dL (8.5-10.1)
[2022-03-24 11:07] LABS: CREATININE 0.5 mg/dL (0.55-1.3)
[2022-03-24] MEDS ORDERED: PANTOPRAZOLE SODIUM 40 MG in SODIUM CHLORIDE 100 ML IVPB SCH (12:00)
[2022-03-24] MEDS: ACETAMINOPHEN 1000 MG/100 ML BAG IVPB PRN ×2 (12:37→21:20)
[2022-03-24] MEDS ORDERED: METOCLOPRAMIDE HCL INJECTION 10 MG/2 ML VIAL IVPUSH SCH (13:00)
[2022-03-24] MEDS: HYDROmorphone HCl 2 MG/ML VIAL IVPB PRN (13:16)
[2022-03-24] MEDS: ONDANSETRON 4 MG/2 ML VIAL IVPUSH PRN ×2 (13:28→21:20)
[2022-03-24] MEDS: PIPERACILLIN/TAZOB 3.375 GM 3.375 GM in DEXTROSE 5%-WATER - 50 ML IVPB SCH ×2 (14:08→17:58)
[2022-03-24] MEDS ORDERED: SUCRALFATE 1 GM/10 ML UNIT DOSE CUPS PO SCH (16:30)
[2022-03-24] MEDS: KETOROLAC TROMETHAMINE 15 MG/ML VIAL IVPUSH PRN (17:19)
[2022-03-24] MEDS ORDERED: DEXTROSE 50%-WATER 25 GM/50 ML DISP.SYRIN IVPUSH PRN (17:52)
[2022-03-24 18:13] LABS: EPI CELLS 16 /uL (0-25.1); HYALINE CASTS 1 /uL (0-3.1); PH,URINE 7.5 (5.0-8.0); URINE APPEARANCE CLEAR; URINE BACTERIA 101 /uL (0-1359); URINE BILIRUBIN NEGATIVE (NEGATIVE); URINE COLOR YELLOW; URINE GLUCOSE (UA) NEGATIVE (NEGATIVE); URINE KETONE TRACE (NEGATIVE); URINE LEUK ESTERASE NEGATIVE (NEGATIVE); URINE NITRITE NEGATIVE (NEGATIVE); URINE PROTEIN TRACE (NEGATIVE); URINE RBC 65 /uL (0-23.9); URINE WBC 14 /uL (0-25.8)
[2022-03-25] MEDS: PIPERACILLIN/TAZOB 3.375 GM 3.375 GM in DEXTROSE 5%-WATER - 50 ML IVPB SCH ×3 (02:57→17:14)
[2022-03-25] MEDS: ACETAMINOPHEN 1000 MG/100 ML BAG IVPB PRN (05:27)
[2022-03-25 09:46] LABS: BASO % 0.7 % (0-2.0); EOS % 0.3 % (0-4.5); HEMATOCRIT 35.9 % (32.4-45.2); HEMOGLOBIN 11.7 GM/dL (10.7-15.3); LYMPH % 32.4 % (8-40); MCH 28.2 pg (25.7-33.7); MCHC 32.7 g/dl (32.0-36.0); MEAN CELL VOLUME 86.3 fl (80-96); MEAN PLT VOLUME 7.7 fl (7.5-11.1); MONO % 6.5 % (3.8-10.2); NEUT % 60.1 % (42.8-82.8); PLATELET COUNT 342 10^3/uL (134-434); RBC 4.16 M/mm3 (3.60-5.2); RDW 15.7 % (11.6-15.6)
[2022-03-25] MEDS: ENOXAPARIN NA (PORCINE) 40 MG/0.4 ML DISP.SYRIN SQ SCH (09:59)
[2022-03-25] MEDS: GABAPENTIN 300 MG CAPSULE PO SCH ×2 (09:59→21:22)
[2022-03-25] MEDS: PANTOPRAZOLE SODIUM 40 MG VIAL IVPUSH SCH ×2 (09:59→21:22)
[2022-03-25] MEDS ORDERED: PANTOPRAZOLE SODIUM 40 MG VIAL IVPUSH SCH (10:00)
[2022-03-25] MEDS: ONDANSETRON 4 MG/2 ML VIAL IVPUSH PRN (10:07)
[2022-03-25] MEDS: KETOROLAC TROMETHAMINE 15 MG/ML VIAL IVPUSH PRN (10:09)
[2022-03-25 10:15] LABS: PHOSPHOROUS 2.8 mg/dL (2.5-4.9)
[2022-03-25 10:17] LABS: ALBUMIN 3.6 g/dl (3.4-5.0); BILIRUBIN,TOTAL 0.3 mg/dL (0.2-1); BLOOD UREA NITROGEN 4.5 mg/dL (7-18); CALCIUM 9.7 mg/dL (8.5-10.1); TOT PROT 6.5 g/dl (6.4-8.2)
[2022-03-25] MEDS: LACTATED RINGERS SOLUTION 1,000 ML/1,000 ML INFUS.BAG IV SCH (10:19)
[2022-03-25 10:20] LABS: CREATININE 0.6 mg/dL (0.55-1.3)
[2022-03-25] MEDS ORDERED: LACTATED RINGERS SOLUTION 1,000 ML/1,000 ML INFUS.BAG IV SCH (10:20)
[2022-03-25] MEDS: LISINOPRIL 20 MG TABLET PO SCH (10:21)
[2022-03-25] MEDS: INSULIN SLIDING SCALE (NOVOLOG) 1 VIAL SQ SCH ×2 (12:08→17:02)
[2022-03-25] MEDS: HYDROmorphone HCl 2 MG/ML VIAL IVPB PRN (17:02)
[2022-03-26] MEDS: PIPERACILLIN/TAZOB 3.375 GM 3.375 GM in DEXTROSE 5%-WATER - 50 ML IVPB SCH ×2 (02:45→10:49)
[2022-03-26] MEDS: INSULIN SLIDING SCALE (NOVOLOG) 1 VIAL SQ SCH ×2 (08:01→12:11)
[2022-03-26 09:15] LABS: BASO % 0.7 % (0-2.0); EOS % 0.3 % (0-4.5); HEMATOCRIT 35.9 % (32.4-45.2); HEMOGLOBIN 12.2 GM/dL (10.7-15.3); LYMPH % 30.5 % (8-40); MCH 29.1 pg (25.7-33.7); MCHC 33.9 g/dl (32.0-36.0); MEAN CELL VOLUME 85.8 fl (80-96); MEAN PLT VOLUME 7.3 fl (7.5-11.1); MONO % 6.7 % (3.8-10.2); NEUT % 61.8 % (42.8-82.8); PLATELET COUNT 342 10^3/uL (134-434); RBC 4.18 M/mm3 (3.60-5.2); RDW 15.6 % (11.6-15.6); WHITE BLOOD COUNT 8.8 K/mm3 (4.0-10.0)
[2022-03-26 09:49] LABS: MAGNESIUM 1.8 mg/dL (1.8-2.4)
[2022-03-26 09:52] LABS: PHOSPHOROUS 2.9 mg/dL (2.5-4.9)
[2022-03-26] MEDS: PANTOPRAZOLE SODIUM 40 MG VIAL IVPUSH SCH (10:49)
[2022-03-26] MEDS: LISINOPRIL 20 MG TABLET PO SCH (10:49)
[2022-03-26] MEDS: ENOXAPARIN NA (PORCINE) 40 MG/0.4 ML DISP.SYRIN SQ SCH (10:50)
[2022-03-26] MEDS: GABAPENTIN 300 MG CAPSULE PO SCH (10:50)
[2022-03-26] MEDS: KETOROLAC TROMETHAMINE 15 MG/ML VIAL IVPUSH PRN (11:02)
[2022-03-26] MEDS ORDERED: INSULIN (NOVOLOG) ASPART 100 UNITS/ML 10ML VIAL ONE (11:08)
[2022-03-26 15:51] VITALS: BP 166/80; PULSE 83; RESP 18; TEMP 97.6
[2022-03-28 19:09] LABS: DRVVT - 33.4 sec (0.0-47.0)
== END 2022-03-26 16:58 | disposition home or self-care (01) | DRG 392 ==
LOC: JER 12:42 → JERBED 18:00 → J5S 21:11 → J8W 21:27
PROVIDERS: ADMIT Internal Medicine; ATTEND Internal Medicine
DX: K52.9 Noninfective gastroenteritis and colitis, unspecified (principal); E11.9 Type 2 diabetes mellitus without complications; K21.9 Gastro-esophageal reflux disease without esophagitis; I10 Essential (primary) hypertension; E78.5 Hyperlipidemia, unspecified; R11.2 Nausea with vomiting, unspecified; F12.90 Cannabis use, unspecified, uncomplicated; F11.90 Opioid use, unspecified, uncomplicated; K27.9 Peptic ulcer, site unspecified, unspecified as acute or chronic, without hemorrhage or perforation
CPT/HCPCS: 0241U-QW; 36415; 71045-TC-FY; 74177-TC; 80048; 80053; 81003; 82962; 83036; 83605; 83690; 83735; 84100; 84484; 85025; 85303; 85306; 85610; 85613; 85730; 85732; 86850; 86900; 86901; 87040; 87077; 87086; 93005; 93010; 99285-25; Q9967

== ENCOUNTER 2023-01-03 09:07 | Emergency (ER) | payer BC, OTHER ==
[2023-01-03 09:37] VITALS: TEMP 100.1; BMI 31.8
[2023-01-03] MEDS ORDERED: ACETAMINOPHEN 1000 MG/100 ML BAG IVPB ONE (09:58)
[2023-01-03] MEDS ORDERED: SODIUM CHLORIDE 0.9% 500 ML INFUS.BAG IV ONE (09:58)
[2023-01-03] MEDS ORDERED: FAMOTIDINE 20 MG/50 ML IVPB 20 MG/50 ML MG IVPB ONE ×3 (09:58→10:42)
[2023-01-03] MEDS ORDERED: LIDOCAINE 5% TOPICAL PATCH TP ONE (09:59)
[2023-01-03] MEDS ORDERED: ONDANSETRON 4 MG/2 ML VIAL IVPUSH ONE (10:02)
[2023-01-03] MEDS ORDERED: ACETAMINOPHEN INJECTION 100 ML IVPB ONE (10:29)
[2023-01-03] MEDS ORDERED: ONDANSETRON 4 MG/2 ML VIAL ONE (10:29)
[2023-01-03] MEDS ORDERED: LIDOCAINE 4% PATCH TP ONE (10:29)
[2023-01-03 11:04] LABS: BASO % 0.8 % (0-2.0); HEMATOCRIT 38.6 % (32.4-45.2); HEMOGLOBIN 12.3 GM/dL (10.7-15.3); LYMPH % 9.8 % (8-40); MCH 26.1 pg (25.7-33.7); MCHC 31.9 g/dl (32.0-36.0); MEAN CELL VOLUME 81.9 fl (80-96); MEAN PLT VOLUME 7.1 fl (7.5-11.1); MONO % 11.9 % (3.8-10.2); NEUT % 77.5 % (42.8-82.8); PLATELET COUNT 296 10^3/uL (134-434); RBC 4.71 M/mm3 (3.60-5.2); RDW 14.3 % (11.6-15.6); WHITE BLOOD COUNT 8.5 K/mm3 (4.0-10.0)
[2023-01-03 11:11] LABS: INR 1.08 (0.83-1.09); PROTHROMBIN TIME (PATIENT) 12.5 SEC (9.7-13.0)
[2023-01-03 11:13] LABS: ACTIVATED PTT 35.9 SECONDS (25.2-36.5)
[2023-01-03 11:36] LABS: POTASSIUM 3.9 mmol/L (3.5-5.1)
[2023-01-03 11:38] LABS: CALCIUM 10.1 mg/dL (8.5-10.1)
[2023-01-03 11:39] LABS: ALBUMIN 4.1 g/dl (3.4-5.0); BLOOD UREA NITROGEN 6.3 mg/dL (7-18)
[2023-01-03 11:42] LABS: CREATININE 0.7 mg/dL (0.55-1.3)
[2023-01-03 11:43] LABS: BILIRUBIN,TOTAL 0.2 mg/dL (0.2-1); TOT PROT 7.6 g/dl (6.4-8.2)
[2023-01-03 12:03] LABS: EPI CELLS 30 /uL (0-25.1); HYALINE CASTS 1 /uL (0-3.1); URINE APPEARANCE CLOUDY; URINE BACTERIA 361 /uL (0-1359); URINE BILIRUBIN NEGATIVE (NEGATIVE); URINE COLOR YELLOW; URINE GLUCOSE (UA) NEGATIVE (NEGATIVE); URINE KETONE 1+ (NEGATIVE); URINE LEUK ESTERASE NEGATIVE (NEGATIVE); URINE NITRITE NEGATIVE (NEGATIVE); URINE PROTEIN 2+ (NEGATIVE); URINE RBC 405 /uL (0-23.9); URINE UROBILINOGEN 0.2 mg/dL (0.2-1.0); URINE WBC 18 /uL (0-25.8)
[2023-01-03 12:31] VITALS: BP 147/63; PULSE 89; RESP 18
[2023-01-03] MEDS ORDERED: LIDOCAINE PATCH REMOVAL MC ONE (22:00)
== END 2023-01-03 12:32 | disposition home or self-care (01) ==
LOC: JER 09:07
PROC: 3E033GC Introduction of Other Therapeutic Substance into Peripheral Vein, Percutaneous Approach (ICD-10-PCS; principal; 2023-01-03)
PROC: 3E033GC Introduction of Other Therapeutic Substance into Peripheral Vein, Percutaneous Approach (ICD-10-PCS; 2023-01-03)
PROC: 3E033GC Introduction of Other Therapeutic Substance into Peripheral Vein, Percutaneous Approach (ICD-10-PCS; 2023-01-03)
DX: M54.50 Low back pain, unspecified (principal); G89.29 Other chronic pain; R11.10 Vomiting, unspecified
CPT/HCPCS: 36415; 71045-TC-FY; 80053; 81003; 83690; 84484; 85025; 85610; 85730; 87086; 93005; 93010; 99285-25

== ENCOUNTER 2023-08-26 10:14 | Inpatient (IN) | payer BC, OTHER ==
[2023-08-26] MEDS ORDERED: ONDANSETRON 4 MG/2 ML VIAL ONE ×2 (10:38→14:37)
[2023-08-26] MEDS ORDERED: ACETAMINOPHEN INJECTION 100 ML IVPB ONE (10:47)
[2023-08-26 11:06] LABS: BASO % 0.9 % (0-2.0); EOS % 0.2 % (0-4.5); HEMATOCRIT 43.6 % (32.4-45.2); HEMOGLOBIN 14.3 GM/dL (10.7-15.3); MCH 27.1 pg (25.7-33.7); MCHC 32.8 g/dl (32.0-36.0); MEAN CELL VOLUME 82.7 fl (80-96); MEAN PLT VOLUME 7.1 fl (7.5-11.1); NEUT % 75.9 % (42.8-82.8); PLATELET COUNT 391 10^3/uL (134-434); RBC 5.27 M/mm3 (3.60-5.2); RDW 14.4 % (11.6-15.6); WHITE BLOOD COUNT 11.9 K/mm3 (4.0-10.0)
[2023-08-26] MEDS: ACETAMINOPHEN 1000 MG/100 ML BAG IVPB ONE (11:09)
[2023-08-26] MEDS: LACTATED RINGERS SOLUTION 1000 ML INFUS.BAG IV ONE (11:09)
[2023-08-26] MEDS: ONDANSETRON *ODT* 4 MG TABLET SL ONE (11:09)
[2023-08-26] MEDS: FAMOTIDINE 20 MG/50 ML IVPB 20 MG/50 ML MG IVPB ONE (11:09)
[2023-08-26] MEDS ORDERED: HYDROmorphone HCL CARPU-JECT 2 MG/1 ML DISP.SYRIN ONE ×2 (11:11→16:20)
[2023-08-26] MEDS ORDERED: FAMOTIDINE 20 MG/50 ML IVPB 20 MG/50 ML MG IVPB ONE (11:11)
[2023-08-26 11:14] LABS: ACTIVATED PTT 33.4 SECONDS (25.2-36.5); INR 0.85 (0.83-1.09); PROTHROMBIN TIME (PATIENT) 9.7 SEC (9.7-13.0)
[2023-08-26] MEDS: HYDROmorphone HCl 2 MG/ML VIAL IVPUSH ONE ×2 (11:17→16:26)
[2023-08-26 11:23] LABS: POTASSIUM 4.3 mmol/L (3.5-5.1)
[2023-08-26 11:25] LABS: CALCIUM 10.5 mg/dL (8.5-10.1)
[2023-08-26 11:26] LABS: ALBUMIN 4.1 g/dl (3.4-5.0); BLOOD UREA NITROGEN 5.4 mg/dL (7-18); MAGNESIUM 1.7 mg/dL (1.8-2.4)
[2023-08-26 11:29] LABS: CREATININE 0.8 mg/dL (0.55-1.3)
[2023-08-26 11:30] LABS: BILIRUBIN,TOTAL 0.3 mg/dL (0.2-1); TOT PROT 7.7 g/dl (6.4-8.2)
[2023-08-26 11:41] LABS: LACTIC ACID 3.9 mmol/L (0.4-2.0)
[2023-08-26] MEDS: SODIUM CHLORIDE 0.9% 500 ML INFUS.BAG IV ONE (11:58)
[2023-08-26] MEDS: ONDANSETRON 4 MG/2 ML VIAL IVPUSH ONE (14:42)
[2023-08-26 15:25] LABS: LACTIC ACID 3.3 mmol/L (0.4-2.0)
[2023-08-26 15:52] LABS: URINE APPEARANCE CLEAR; URINE BILIRUBIN NEGATIVE (NEGATIVE); URINE COLOR YELLOW; URINE GLUCOSE (UA) NEGATIVE (NEGATIVE); URINE KETONE NEGATIVE (NEGATIVE); URINE LEUK ESTERASE NEGATIVE (NEGATIVE); URINE NITRITE NEGATIVE (NEGATIVE); URINE PROTEIN TRACE (NEGATIVE); URINE UROBILINOGEN 0.2 mg/dL (0.2-1.0)
[2023-08-26] MEDS: PIPERACILLIN/TAZOB 3.375 GM 3.375 GM in DEXTROSE 5%-WATER - 50 ML IVPB SCH ×2 (18:22→19:01)
[2023-08-26] MEDS: SODIUM CHLORIDE 1,000 ML IV STA (18:22)
[2023-08-26] MEDS ORDERED: ACETAMINOPHEN 325 MG TABLET (FP) PO PRN (18:55)
[2023-08-26] MEDS: oxyCODONE HCL 5 MG TABLET PO PRN (19:03)
[2023-08-26] MEDS ORDERED: NYSTATIN POWDER 100,000 UNITS/GM - 15 GM TOPICAL POWDER TP SCH (22:00)
[2023-08-26] MEDS ORDERED: LACTATED RINGERS SOLUTION 1,000 ML/1,000 ML INFUS.BAG IV SCH (22:15)
[2023-08-26] MEDS: ROSUVASTATIN CA 5 MG TABLET PO SCH (22:46)
[2023-08-26] MEDS: GABAPENTIN 300 MG CAPSULE PO SCH (22:46)
[2023-08-27] MEDS: PIPERACILLIN/TAZOB 3.375 GM 3.375 GM in DEXTROSE 5%-WATER - 50 ML IVPB SCH (01:46)
[2023-08-27] MEDS: ONDANSETRON 4 MG/2 ML VIAL IVPUSH PRN (04:02)
[2023-08-27] MEDS: INSULIN ASPART SLIDING SCALE (NOVOLOG) 1 VIAL SQ SCH (06:21)
[2023-08-27 08:50] LABS: HEMATOCRIT 36.9 % (32.4-45.2); HEMOGLOBIN 12.2 GM/dL (10.7-15.3); MCH 27.2 pg (25.7-33.7); MEAN CELL VOLUME 82.3 fl (80-96); MEAN PLT VOLUME 7.2 fl (7.5-11.1); PLATELET COUNT 330 10^3/uL (134-434); RBC 4.48 M/mm3 (3.60-5.2); WHITE BLOOD COUNT 10.6 K/mm3 (4.0-10.0)
[2023-08-27 09:02] LABS: POTASSIUM 4.3 mmol/L (3.5-5.1)
[2023-08-27 09:04] LABS: BLOOD UREA NITROGEN 4.8 mg/dL (7-18); CALCIUM 9.5 mg/dL (8.5-10.1)
[2023-08-27 09:05] LABS: MAGNESIUM 1.6 mg/dL (1.8-2.4)
[2023-08-27 09:08] LABS: CREATININE 0.7 mg/dL (0.55-1.3); PHOSPHOROUS 2.9 mg/dL (2.5-4.9)
[2023-08-27] MEDS ORDERED: POLYETHYLENE GLYCOL (HEALTHYLAX) 3350 17 GM PACKET PO SCH (10:00)
[2023-08-27] MEDS: oxyCODONE HCL 5 MG TABLET PO PRN (10:52)
[2023-08-27] MEDS: NICOTINE 14 MG/24 HOURS TOPICAL PATCH TD SCH (10:52)
[2023-08-27] MEDS: ACETAMINOPHEN 500 MG TABLET (FP) PO PRN (10:53)
[2023-08-27] MEDS: ENOXAPARIN NA (PORCINE) 40 MG/0.4 ML DISP.SYRIN SQ SCH (12:30)
[2023-08-27] MEDS: MAGNESIUM SULF 50% (8.12 MEQ/2 ML-1 GM VIAL) IVPB ONE (12:30)
[2023-08-27] MEDS: NYSTATIN 100,000 UNIT/GM TOPICAL CREAM 15 GM TUBE TP SCH (14:27)
[2023-08-27] MEDS: POLYETHYLENE GLYCOL (HEALTHYLAX) 3350 17 GM PACKET PO PRN (18:40)
[2023-08-28 07:14] LABS: POTASSIUM 3.9 mmol/L (3.5-5.1)
[2023-08-28 07:15] LABS: CALCIUM 9.2 mg/dL (8.5-10.1)
[2023-08-28 07:16] LABS: BLOOD UREA NITROGEN 3.3 mg/dL (7-18); MAGNESIUM 1.8 mg/dL (1.8-2.4)
[2023-08-28 07:19] LABS: CREATININE 0.6 mg/dL (0.55-1.3)
[2023-08-28 07:41] LABS: BASO % 0.8 % (0-2.0); EOS % 0.7 % (0-4.5); HEMATOCRIT 36.9 % (32.4-45.2); HEMOGLOBIN 12.2 GM/dL (10.7-15.3); LYMPH % 35.4 % (8-40); MCH 27.2 pg (25.7-33.7); MCHC 33.1 g/dl (32.0-36.0); MEAN CELL VOLUME 82.2 fl (80-96); MEAN PLT VOLUME 7.3 fl (7.5-11.1); MONO % 9.8 % (3.8-10.2); NEUT % 53.3 % (42.8-82.8); PLATELET COUNT 314 10^3/uL (134-434); RBC 4.49 M/mm3 (3.60-5.2); RDW 13.9 % (11.6-15.6)
[2023-08-28] MEDS: LISINOPRIL 20 MG TABLET PO SCH (12:03)
[2023-08-28 14:18] VITALS: BMI 28.5
[2023-08-28] MEDS: POLYETHYLENE GLYCOL (HEALTHYLAX) 3350 17 GM PACKET PO SCH (16:25)
[2023-08-28 21:16] VITALS: RESP 18
[2023-08-28] MEDS: SENNOSIDES 8.6MG TABLET (FP) PO SCH (21:23)
[2023-08-29] MEDS ORDERED: LABETALOL HCL 5 MG/1 ML (100MG/20 ML VIAL) IVPUSH ONE (03:29)
[2023-08-29] MEDS: LABETALOL HCL 20 MG/4 ML VIAL IVPUSH ONE (04:05)
[2023-08-29] MEDS: CEFTRIAXONE 1 GM in DEXTROSE 5%-WATER - 50 ML IVPB SCH (09:26)
[2023-08-29] MEDS ORDERED: LOPERAMIDE HCL 2 MG CAPSULE PO PRN (09:29)
[2023-08-29] MEDS: PANTOPRAZOLE SODIUM 40 MG in SODIUM CHLORIDE 100 ML IVPB SCH (10:22)
[2023-08-29] MEDS: METOCLOPRAMIDE HCL INJECTION 10 MG/2 ML VIAL IVPB SCH (10:25)
[2023-08-29] MEDS: PANTOPRAZOLE SODIUM 40 MG VIAL IVPB SCH (10:25)
[2023-08-29] MEDS ORDERED: ONDANSETRON 4 MG/2 ML VIAL IVPUSH PRN (11:10)
[2023-08-29 11:26] LABS: HEMATOCRIT 41.4 % (32.4-45.2); HEMOGLOBIN 13.5 GM/dL (10.7-15.3); MCH 26.5 pg (25.7-33.7); MCHC 32.6 g/dl (32.0-36.0); MEAN CELL VOLUME 81.1 fl (80-96); MEAN PLT VOLUME 6.9 fl (7.5-11.1); PLATELET COUNT 356 10^3/uL (134-434); RBC 5.11 M/mm3 (3.60-5.2); RDW 13.9 % (11.6-15.6); WHITE BLOOD COUNT 8.7 K/mm3 (4.0-10.0)
[2023-08-29] MEDS: ONDANSETRON 4 MG/2 ML VIAL IVPUSH SCH ×2 (11:27→12:48)
[2023-08-29 11:48] LABS: POTASSIUM 3.9 mmol/L (3.5-5.1)
[2023-08-29 11:52] LABS: CALCIUM 10.3 mg/dL (8.5-10.1)
[2023-08-29 11:53] LABS: BLOOD UREA NITROGEN 3.9 mg/dL (7-18)
[2023-08-29 11:56] LABS: CREATININE 0.7 mg/dL (0.55-1.3)
[2023-08-29 14:31] VITALS: BP 154/72; PULSE 69; TEMP 98.6
== END 2023-08-29 18:05 | disposition home or self-care (01) | DRG 392 ==
LOC: JER 10:14 → JERBED 15:55 → J4S 17:09 → OBSVTOIN 18:07
PROVIDERS: ADMIT Internal Medicine; ATTEND Internal Medicine
DX: A08.8 Other specified intestinal infections (principal); I24.89 Other forms of acute ischemic heart disease; E87.20 Acidosis, unspecified; I10 Essential (primary) hypertension; K21.9 Gastro-esophageal reflux disease without esophagitis; E11.9 Type 2 diabetes mellitus without complications; M54.50 Low back pain, unspecified; E78.5 Hyperlipidemia, unspecified; N80.8 Other endometriosis; D72.829 Elevated white blood cell count, unspecified; Z87.11 Personal history of peptic ulcer disease
CPT/HCPCS: 0241U-QW; 36415; 71045-TC-FY; 74174-TC; 80048; 80053; 81003; 82962; 83605; 83690; 83735; 84100; 84484; 85025; 85027; 85610; 85730; 87045; 87046; 87086; 93005; 93010; 93306-TC; 99285-25; G0378; J0131; Q0162; Q9967